=== PATIENT | female | born 1965 | race Asian ===

== ENCOUNTER 2020-07-04 14:39 | Emergency (ER) | payer MEDICARE, SELFPAY ==
[2020-07-04 14:41] VITALS: BP 131/71; PULSE 93; RESP 18; TEMP 36.3; O2SAT 99; BMI 29.2
--- NOTE | 2020-07-04 16:26 | CT_ITS ---
EXAMINATION: CT HEAD WITHOUT CONTRAST CLINICAL INFORMATION: Fall down backwards. History of MS. COMPARISON: None available. TECHNIQUE: Contiguous axial imaging was performed from the skull base to vertex without intravenous administration of contrast. This CT examination was performed using dose optimization techniques as appropriate, variously including the following: *Automated exposure control *Adjustment of mA and/or kV according to patient size (this includes techniques or standardized protocols for targeted exams where dose is matched to indication/reason for exam; i.e. extremities or head) *Use of iterative reconstruction technique FINDINGS: There is hypoattenuation concentrated within the periventricular white matter in keeping with the history of multiple sclerosis. There is no intracranial hemorrhage, hydrocephalus, extra-axial surface collection, midline shift, or other herniation pattern. [place] to white matter differentiation is diffusely maintained without evidence of an evolved acute territorial infarct. The basilar cisterns are preserved. No significant soft tissue abnormality. No acute osseous abnormality. The paranasal sinuses and the mastoid air cells are well aerated. CT/CT head/brain wo con IMPRESSION: No acute intracranial abnormality. There is hypoattenuation concentrated within the periventricular white matter in keeping with the history of multiple sclerosis.
--- NOTE | 2020-07-04 16:29 | ED_ITS ---
HPI - General Adult General Chief complaint: Fall Stated complaint: FELL,HIT HEAD Time Seen by Provider: 07/04/20 16:20 Source: patient Mode of arrival: ambulatory Limitations: no limitations History of Present Illness HPI narrative: patient comes to The emergency room complaining of a laceration to her forehead and a fall. Patient states she was walking up the stairs, her legs gave out and she fell backwards and rolled down 10 stairs. Patient states she did not lose consciousness, denies pain anywhere else except her forehead. Patient denies being on blood thinners. Patient has chronic right- sided hip pain, states it got worse with the fall MD complaint: laceration, fall Related Data Allergies Allergy/AdvReac Type Severity Reaction Status Date / Time No Known Allergies Allergy Verified 07/04/20 14:45 Review of Systems Review of Systems: Constitutional : No Weight loss, No Fever, No Chills, No Night Sweats, No Fatigue, No Malaise ENT/Mouth : No Hearing loss, No Ear Pain, No Nasal Congestion, No Sinus Pain, No Hoarseness, No sore throat, No Rhinorrhea, No Swallowing Difficulty Eyes: No Eye Pain, No Swelling, No Redness, No Foreign Body, No Discharge, No Vision Changes Cardiovascular : No Chest Pain, No SOB, No Dyspnea on Exertion, No Orthopnea, No Edema, No Palpitations Respiratory : No Cough, No Sputum, No Wheezing, No Smoke Exposure, No Dyspnea Gastrointestinal : No Nausea, No Vomiting, No Diarrhea, No Constipation, No abdominal Pain, No Hematochezia, No Melena Genitourinary : no irregular bleeding, No Dysuria, No Urinary Frequency, No Hematuria, No Urinary Incontinence, No Urgency, No Flank Pain, No Urinary Flow Changes, No Hesitancy Musculoskeletal : complaining of right-sided hip pain, acute on chronic Skin : laceration to left side of forehead Neuro : No Weakness, No Numbness, No Paresthesias, No Loss of Consciousness, No Dizziness, No Headache Psych : No Anxiety/Panic, No Depression, No SI/HI/AH/VH, No Social Issues, Heme/Lymph: No Bruising, No Bleeding,No Lymphadenopathy Endocrine : No Polyuria, No Polydipsia, No Temperature Intolerance PMF Past Medical History Medical History (Updated 07/04/20 @ 17:47 by Madison Meadows MD) Multiple sclerosis Social History Social History Advance Directives: No Advance Directives Information Provided: Yes Physical Exam Vital Signs: Vital Signs: Last Vital Signs Temp 97.4 F 07/04/20 14:41 Pulse 93 07/04/20 14:41 Resp 18 07/04/20 14:41 BP 131/71 07/04/20 14:41 Pulse Ox 99 07/04/20 14:41 Body Mass Index 29.2 Appearance: Alert. Oriented X3. No acute distress. Eyes: Pupils equal, round and reactive to light. ENT: Pharynx normal. Neck: Normal inspection. Neck supple. No lymph nodes noted. No crepitus CVS: Normal heart rate and rhythm. Pulses normal. Normal S1 and S2 Respiratory: No respiratory distress. Breath sounds normal. No Wheezing. No rales Abdomen: Soft and nontender. No rigidity. No distention. good BS x4 Skin: Skin warm and dry. 4 cm laceration to the left side of the forehead crossing the hairline, bleeding controlled Extremities: No lower extremity edema. No lower extremity edema. No Lacerations. No Rash Neuro: Oriented X 3. No motor deficit. No sensory deficit. Moving all extermities. No slurred speech. Course Course Course Narrative: patient's laceration was repaired with 9 delfino over the scalp, and 3 sutures over the skin on the forehead Discussed with the patient her CT scan is normal, no new findings in the hip x- ray either. Patient is ambulatory With help of her cane at baseline Procedures Laceration Laceration 1: Site: scalp Size (cm): 5 Description: linear and irregular Depth: simple, single layer Local Anesthetic: lidocaine 2% Amount of anesthesia used (mL): 5 Pre-repair: wound explored Size (cm): 4-0 Number of sutures: 9 Medical Decision Making Imaging Data head CT: Radiologist's impression: There is hypoattenuation concentrated within the periventricular white matter in keeping with the history of multiple sclerosis. There is no intracranial hemorrhage, hydrocephalus, extra-axial surface collection, midline shift, or other herniation pattern. [place] to white matter differentiation is diffusely maintained without evidence of an evolved acute territorial infarct. The basilar cisterns are preserved. No significant soft tissue abnormality. No acute osseous abnormality. The paranasal sinuses and the mastoid air cells are well aerated. CT/CT head/brain wo con IMPRESSION: No acute intracranial abnormality. There is hypoattenuation concentrated within the periventricular white matter in keeping with the history of multiple sclerosis. hip x-ray: Radiologist's impression: There is hypoattenuation concentrated within the periventricular white matter in keeping with the history of multiple sclerosis. There is no intracranial hemorrhage, hydrocephalus, extra-axial surface collection, midline shift, or other herniation pattern. [place] to white matter differentiation is diffusely maintained without evidence of an evolved acute territorial infarct. The basilar cisterns are preserved. No significant soft tissue abnormality. No acute osseous abnormality. The paranasal sinuses and the mastoid air cells are well aerated. CT/CT head/brain wo con IMPRESSION: No acute intracranial abnormality. There is hypoattenuation concentrated within the periventricular white matter in keeping with the history of multiple sclerosis. Discharge Plan Discharge Clinical Impression: Laceration Patient Disposition: Home, Self-Care Instructions: Staple Care (ED), Head Laceration (ED) Additional Instructions: your delfino and stitches need to come out and 7-10 days. If you see any signs of infection such as redness, pus drainage, fever, or if you see anything abnormal please return to the emergency room
--- NOTE | 2020-07-04 16:46 | XR_ITS ---
EXAMINATION: XR HIP, RIGHT CLINICAL INFORMATION: Acute on chronic right hip pain COMPARISON: Radiographs right hip 01/12/2018 TECHNIQUE: AP view pelvis is performed along with AP and frog-lateral projections right hip for a total of 3 views. FINDINGS: The right hip shows no fracture or dislocation. No joint narrowing or erosive change or visible chondrocalcinosis. Soft tissue planes around the hips appear bilaterally symmetric. The SI joints and pubis are unremarkable. Bowel gas is normal. There is dextrocurvature thoracic spine with multilevel degenerative changes and rotatory component. XR/XR hip RT w PEL1V IMPRESSION: 1. Unremarkable right hip. 2. Multilevel degenerative changes lumbar spine with rotatory dextrocurvature.
[2020-07-04] MEDS: Lidocaine HCl 2 % MPF 5 ML VIAL INFILTRATI (17:56)
--- NOTE | 2020-07-04 17:56 | PC.NURSE ---
lidocaine given to MD Meadows
== END 2020-07-04 18:38 | disposition home or self-care (01) ==
PROVIDERS: Emergency Provider Emergency Medicine; PCP Internal Medicine
DX: S01.01XA Laceration without foreign body of scalp, initial encounter (principal); M25.552 Pain in left hip; M25.551 Pain in right hip; R10.2 Pelvic and perineal pain; W10.9XXA Fall (on) (from) unspecified stairs and steps, initial encounter; Y93.01 Activity, walking, marching and hiking; Y92.9 Unspecified place or not applicable; Y99.9 Unspecified external cause status
CPT/HCPCS: 12002; 70450; 73502; 99282; 99284

== ENCOUNTER 2020-08-22 09:27 | Outpatient (REF) | payer MEDICARE, SELFPAY ==
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
== END 2020-08-22 09:28 | disposition home or self-care (01) ==
LOC: HO.HMGCX 09:27
PROVIDERS: PCP Internal Medicine; Visit Provider Physician Assistant
DX: M25.551 Pain in right hip (principal)
CPT/HCPCS: 73502

== ENCOUNTER 2022-02-24 09:19 | Outpatient (REF) | payer OTHER, SELFPAY ==
--- NOTE | ~2022-02-24 | MM_ITS ---
EXAMINATION: MM SCREENING DIGITAL BREAST TOMOSYNTHESIS, BILATERAL CLINICAL INFORMATION: Screening. Asymptomatic. The lifetime risk of breast cancer based on the Tyrer-Cuzick Model is 8%. COMPARISON: Mammography: 12/21/2017, 06/18/2016 TECHNIQUE: Digital breast tomosynthesis is performed in both the craniocaudal and mediolateral oblique views along with computer-aided detection (CAD). Synthesized 2D images are generated from the tomosynthesis. FINDINGS: There are scattered areas of fibroglandular density (ACR BI-RADS breast composition Category b). There are no significant masses, abnormal calcifications, or other abnormalities. Parenchymal pattern is similar to prior studies. There is no developing density or architectural abnormality. The axilla and skin contours are unremarkable. No significant changes. MM/MM tomosynthesis screening BI IMPRESSION: No mammographic evidence of malignancy. ASSESSMENT: BI-RADS 1: Negative RECOMMENDATION: Routine annual mammography screening. This patient's information was entered into a reminder system with a target due date for their next mammogram.
== END 2022-02-24 09:20 | disposition home or self-care (01) ==
LOC: HO.MAMMO 09:19
PROVIDERS: PCP Internal Medicine; Visit Provider Internal Medicine
DX: Z12.31 Encounter for screening mammogram for malignant neoplasm of breast (principal)
CPT/HCPCS: 77063; 77067

== ENCOUNTER 2022-06-29 10:34 | Day surgery (SDC) | payer MEDICARE, SELFPAY ==
--- NOTE | 2022-06-28 10:18 | HO.ANESPROP2 ---
Documented by User: Anaya Hernandez NP 06/28/22 10:18 HPI - Anesthesia Eval Consult details Narrative: 57yo F for Colonoscopy PMFSH Active Problems Active Problems: All Active Problems (Updated 06/28/22 @ 09:13 by Ernestine Feng RN) Visit for suture removal (Acute) Encounter for staple removal (Acute) Concussion (Acute) Cat bite of right foot with infection (Acute) Past Medical History Medical History (Updated 06/28/22 @ 09:13 by Ernestine Feng RN) Depression Gregor-Danlos syndrome type III Multiple sclerosis Neuropathy Seizure disorder Family History Family History Father Medical history unknown Mother Colon cancer Surgical History Surgical History History of Social History Social History (Updated 08/06/20 @ 10:42 by LAILA Burrell) Alcohol intake: current Alcohol intake frequency: does not drink Patient Tobacco Use Status: Never used Tobacco Use of substances other than those prescribed or required for medical reasons: No Are you DNR?: No Advance Directives: No Advance Directives Information Provided: Yes Meds Allergies Allergy/AdvReac Type Severity Reaction Status Date / Time No Known Allergies Allergy Verified 06/29/22 11:42 Home Medications Medication Instructions Recorded Confirmed Last Taken Type baclofen 20 mg tablet 20 mg PO DAILY 08/06/20 06/29/22 Unknown History duloxetine 30 mg capsule,delayed 30 mg PO DAILY 08/06/20 06/29/22 Unknown History release gabapentin 600 mg tablet 600 mg PO DAILY 08/06/20 06/29/22 06/29/22 08:30 History levetiracetam 250 mg tablet 250 mg PO DAILY 08/06/20 06/29/22 06/29/22 08:30 History ocrelizumab 30 mg/mL intravenous 600 mg IV [id number] 08/06/20 06/29/22 Unknown History solution (Ocrevus) Exam Exam Date and Time: June 28, 2022 1018 Assessment and Plan Assessment Anesthesia Assessment: Chart Reviewed Documented by User: Cedrick Walker MD 06/29/22 17:20 HPI - Anesthesia Eval Consult details Narrative: 57yo F for Colonoscopy leftt sided weakness more than right specially in the upper body , b/l LE weakness , attributed to MS . PMFSH Past Medical History Medical History (Updated 06/28/22 @ 09:13 by Ernestine Feng RN) Depression Gregor-Danlos syndrome type III Multiple sclerosis Neuropathy Seizure disorder Functional capacity: uses cane/walker Family History Family History Father Medical history unknown Mother Colon cancer Family history of problems with anesthesia: Yes (Delayed emergence ) Surgical History Surgical History History of History of Problems with Anesthesia: No Social History Social History (Updated 08/06/20 @ 10:42 by LAILA Burrell) Alcohol intake: current Alcohol intake frequency: does not drink Patient Tobacco Use Status: Never used Tobacco Use of substances other than those prescribed or required for medical reasons: No Are you DNR?: No Advance Directives: No Advance Directives Information Provided: Yes Meds Allergies Allergy/AdvReac Type Severity Reaction Status Date / Time No Known Allergies Allergy Verified 06/29/22 11:42 Home Medications Medication Instructions Recorded Confirmed Last Taken Type baclofen 20 mg tablet 20 mg PO DAILY 08/06/20 06/29/22 Unknown History duloxetine 30 mg capsule,delayed 30 mg PO DAILY 08/06/20 06/29/22 Unknown History release gabapentin 600 mg tablet 600 mg PO DAILY 08/06/20 06/29/22 06/29/22 08:30 History levetiracetam 250 mg tablet 250 mg PO DAILY 08/06/20 06/29/22 06/29/22 08:30 History ocrelizumab 30 mg/mL intravenous 600 mg IV [id number] 08/06/20 06/29/22 Unknown History solution (Ocrevus) Exam Airway Mallampati Class: III TM Dist: >3cm Neck ROM: Full Loose/Missing/Broken Teeth: Yes (Chipped teeth , poor dentition overall ) Heart: S1,S2 Lungs: b/l breath sounds Assessment and Plan Assessment Anesthesia Assessment: Anesthesia Plan Discussed Final Anesthetic Review Family History of Problems with Anesthesia: Yes (Delayed emergence ) History of Problems with Anesthesia: No NPO: Yes ASA Class: III Final Preanesthetic Review: Meds/Allgs Chart Reviewed, Consent Obtained/Reviewed and Anes Risks/Benef Reviewed Patient Risk: Intermediate Procedure Risk: Intermediate Anesthetic Plan Anesthetic Plan: MAC: Disposition: Standard PACU
[2022-06-29 12:15] VITALS: BP 152/82; PULSE 98; RESP 16; TEMP 36.3; O2SAT 97; BMI 27.1
[2022-06-29] MEDS: Lactated Ringers 1,000 ML 100 ML IVCONT (12:35)
--- NOTE | 2022-06-29 12:54 | MHC.SHP ---
Pre-Procedural Eval Section A Date of Service: 06/29/22 The patient is an INPATIENT: No Changes since office visit: No Cold of Flu in the past 2 weeks, No New Medical Problems, No Changes in Medication and No Patient answered all questions The History & Physical has been completed within 30 days and I have reviewed it.: Yes Section B Chief Complaint: screening Allergies: Allergies Allergy/AdvReac Type Severity Reaction Status Date / Time No Known Allergies Allergy Verified 06/29/22 11:42 Plan I have reviewed the history and physical and performed a pertinent physical examination on my patient. No changes have occurred unless specified.
--- NOTE | 2022-06-29 13:22 | PM.OP ---
Brief Operative Note Date of Service: 06/29/22 Pre-op diagnosis: screening change in bowels Post-op diagnosis: same Procedure: colo Surgeon: Daniel Sandhu Anesthesia: MAC Was an Executive [employer] used for this Procedure?: No Estimated blood loss (mL): 2 Pathology: other Condition: stable Disposition: PACU
[2022-06-29 13:24] VITALS: BP 100/50; PULSE 88; RESP 16; TEMP 36.7; O2SAT 97
[2022-06-29 13:39] VITALS: BP 120/73; PULSE 79; RESP 16; O2SAT 99
[2022-06-29 13:54] VITALS: BP 146/84; PULSE 78; RESP 16; TEMP 36.8; O2SAT 99
[2022-06-29 14:10] VITALS: BP 152/81; PULSE 77; RESP 16; TEMP 36.8; O2SAT 98
--- NOTE | 2022-06-30 03:30 | OP_ITS ---
SURGEON: Daniel Sandhu MD INDICATIONS: Colon cancer screening and change in bowel habits. PREOPERATIVE DIAGNOSIS: POSTOPERATIVE DIAGNOSIS: PROCEDURE PERFORMED: Colonoscopy to the terminal ileum with biopsy. ESTIMATED BLOOD LOSS: COMPLICATIONS: ANESTHESIA: Monitored anesthesia care. ASSISTANTS: SPECIMENS: DESCRIPTION OF PROCEDURE: The procedure was performed on 06/29/2022. History and physical performed. The risks and benefits of the procedure were explained to the patient. Informed consent was obtained. The patient was placed in the left lateral decubitus position. A digital rectal exam was performed and was found to be normal. An Olympus pediatric video colonoscope was introduced into the rectum and advanced to the cecum without difficulty. The cecum was identified by transillumination, palpation, and identification of the ileocecal valve. Examination was performed. The scope was removed. She tolerated the procedure well and was transferred to recovery area in stable condition. FINDINGS: The terminal ileum was examined and appeared normal. This was biopsied. The visualized colonic mucosa was normal. The quality of the prep was good. No colitis was identified. Random sigmoid biopsies were obtained to evaluate for microscopic colitis. Retroflexed examination showed moderate-sized internal hemorrhoids. IMPRESSION: Normal colonoscopy. RECOMMENDATIONS: 1. Follow up the biopsy results. 2. Repeat colonoscopy is recommended in 10 years for average risk individuals. MD TIERRA Dowell/MOON / [phone]
== END 2022-06-29 14:55 | disposition home or self-care (01) ==
PROVIDERS: PCP Internal Medicine; Visit Provider Internal Medicine Gastroenterology
PROC: 0DJD8ZZ Inspection of Lower Intestinal Tract, Via Natural or Artificial Opening Endoscopic (ICD-10-PCS; CPT 45378; principal; 2022-06-29 11:40)
DX: Z12.11 Encounter for screening for malignant neoplasm of colon (principal); R19.8 Other specified symptoms and signs involving the digestive system and abdomen; K64.8 Other hemorrhoids; G35 Multiple sclerosis; G40.909 Epilepsy, unspecified, not intractable, without status epilepticus; Z79.899 Other long term (current) drug therapy; Z80.0 Family history of malignant neoplasm of digestive organs
CPT/HCPCS: G0105; 88305

== ENCOUNTER 2023-04-01 10:22 | Outpatient (AMB) | payer MEDICARE, SELFPAY ==
--- NOTE | 2023-04-01 10:24 | A.OFFPC_ITS ---
Vital Signs 04/01/23 10:25 Height 5 ft 1 in Weight 134 lb 8 oz BMI 25.4 BP 128/100 H Blood Pressure Location Lt brachial Position Sitting Pulse 107 H Pulse Source Pulse Oximeter Pulse Oximetry (%) 96 Oxygen Delivery Method Room Air Intake Visit Reasons: Gum Infection Allergies No Known Allergies Allergy (Verified 04/01/23 10:25) Medication List - Last Reconciled 04/01/23 by Ozzy Saenz MD baclofen 20 mg PO DAILY duloxetine 30 mg PO DAILY gabapentin 600 mg PO DAILY levetiracetam 250 mg PO DAILY ocrelizumab (Ocrevus) 600 mg IV [id number] Tobacco use date assessed: 04/01/23 Dental Screening Dental Screen Date: 04/01/23 Did you have a dental visit in the last 12 months?: No Did you have a dental problem in the last 6 months where you did not have access to dental care?: No Was dental information given to patient?: No HPI Gum Infection HPI Details painful right lower gum for a week PFSH Medical History Depression Gregor-Danlos syndrome type III Multiple sclerosis Neuropathy Seizure disorder Surgical History History of Family History Father Medical history unknown Mother Colon cancer Social History Housing: Condominium Alcohol intake: current Alcohol intake frequency: does not drink Patient Tobacco Use Status: Never used Tobacco e-Cigarette/Vaping Use: Never Used service: No Current occupational status: unemployed Cognitive needs: No Hearing needs: No Vision needs: No Questionnaire PHQ-9 Over the last 2 weeks, how often have you been bothered by any of the following problems? 1. Little interest or pleasure in doing things: several days 2. Feeling down, depressed, or hopeless: several days 3. Trouble falling or staying asleep, or sleeping too much: not at all 4. Feeling tired or having little energy: not at all 5. Poor appetite or overeating: not at all 6. Feeling bad about yourself - or that you are a failure or have let yourself or your family down: not at all 7. Trouble concentrating on things, such as reading the newspaper or watching television: not at all 8. Moving or speaking so slowly that other people could have noticed. Or the opposite - being so fidgety or restless that you have been moving around a lot more than usual: not at all 9. Thoughts that you would be better off or of hurting yourself in some way: not at all Total score: 2 Source: Developed by Drs. Charles Pittman, Edel Roldan, Humphrey Cruz and colleagues, with an educational rachel from [employer]. Thrive Questionnaire Date Thrive assessed: 04/01/23 I am a: Patient What is your living situation today?: I have a steady place to live Within the past 12 months, did the food you bought not last and you didn't have the money to get more?: Never true Within the past 12 months, did you worry whether your food would run out before you got money to buy more?: Never true Do you have trouble paying for medicines?: No Do you have trouble getting transportation to medical appointments?: No Do you have trouble paying your heating and electricity bill?: No Do you have trouble taking care of your child, family member or friend?: No Do you have trouble with day-to-day activities such as bathing, preparing meals, shopping, managing finances, etc.?: No Are you currently unemployed and looking for a job?: No Are you interested in more education?: No Please select the resources that you would like help with: None DIANELYS-7 AMB Questionnaire DIANELYS-7 Date DIANELYS - 7 assessed: 04/01/23 Feeling nervous, anxious, or on edge: 0 = Not at all Not being able to stop or control worryin = Not at all Worrying too much about different things: 0 = Not at all Trouble relaxin = Not at all Being so restless that it is hard to sit still: 0 = Not at all Becoming easily annoyed or irritable: 0 = Not at all Feeling afraid as if something awful might happen: 0 = Not at all Total DIANELYS-7 score (0-4 normal; 5-9 mild; 10-14 moderate; 15-21 severe): 0 Source: Developed by Drs. Charles Pittman, Edel Roldan, Humphrey Cruz and colleagues, with an educational rachel from [employer]. Review of Systems Const Denies chills, Denies headache(s) and Denies weight loss ENT Denies headache(s) Card Denies chest pain, Denies syncope, Denies irregular heart rhythm and Denies dyspnea Resp Denies chest congestion, Denies cough and Denies dyspnea GI Denies abdominal pain, Denies change in stool character, Denies nausea and Denies vomiting Musc Denies deformity and Denies joint swelling Neuro Denies syncope and Denies headache(s) Physical exam (Primary Care) Vital Signs: Last Vital Signs Pulse 107 H 04/01/23 10:25 BP 128/100 H 04/01/23 10:25 Pulse Ox 96 04/01/23 10:25 Oxygen Delivery Method Room Air 04/01/23 10:25 BMI result Body Mass Index 25.4 Tobacco/Smoking Status: Tobacco use Status Tobacco use date assessed 04/01/23 04/01/23 10:33 Patient Tobacco Use Status Never used Tobacco 04/01/23 10:33 e-Cigarette/Vaping Use Never Used 04/01/23 10:33 PHQ-9: PHQ-9 Score PHQ-9: Total score 2 04/01/23 10:33 Thrive Assessment: Date of Thrive Assessment Date Thrive assessed 04/01/23 04/01/23 10:33 Const General: cooperative, comfortable and no acute distress HENMT Other: right lowere gum red with shallow ulcer Eyes General: appearance normal, both eyes and all related structures Neck Neck: Yes normal visual inspection Assessment and Plan Assessment & Plan (1) Gingivitis: Code(s): K05.10 - Chronic gingivitis, plaque induced Plan: rx; see dentist Medications: New amoxicillin 250 mg PO Q8H 30 caps 0RF Coding Level of Care Code Est Pt Level 3 (68111) Diagnoses Gingivitis K05.10
[2023-04-01 10:25] VITALS: BP 128/100; PULSE 107; O2SAT 96; BMI 25.4
== END 2023-04-01 10:49 | disposition home or self-care (01) ==
PROVIDERS: PCP Internal Medicine; Visit Provider Internal Medicine
DX: K05.10 Chronic gingivitis, plaque induced (principal)
CPT/HCPCS: 99213

== ENCOUNTER 2023-07-27 08:56 | Outpatient (AMB) | payer MEDICARE, SELFPAY ==
[2023-07-27 09:33] VITALS: BP 122/80; PULSE 132; TEMP 37.1; O2SAT 98
--- NOTE | 2023-07-27 09:33 | MHC.OFFWIV ---
Intake Vital Signs 07/27/23 09:33 07/27/23 10:55 Height 5 ft 1 in BP 122/80 Blood Pressure Location Rt brachial Position Sitting Pulse 132 H 82 Pulse Source Pulse Oximeter Monitor Temp 98.7 F Temp Source Oral Pulse Oximetry (%) 98 Intake Visit Reasons: EP Cough, Congestion (masked) Intake Note: pt is here for c.o cough, congestion Patient Tobacco Use Status: Never used Tobacco Allergies No Known Allergies Allergy (Verified 07/27/23 10:14) Medication List - Last Reconciled 07/27/23 by Richelle Pierre, HEAD OF SALES [employer]- baclofen 20 mg PO TID duloxetine 30 mg PO DAILY gabapentin 600 mg PO DAILY levetiracetam 250 mg PO DAILY modafinil 200 mg PO DAILY ocrelizumab (Ocrevus) 600 mg IV [id number] Do you need a note to return to daycare/school/sports/work: Yes HPI HPI Comments History of Present Illness Details here today w c/o cough that started 1 week ago worse in the AM thinks she hears crackling when lying flat has a runny nose otherwise denies fever, chills, ear pain, sore throat, chest pain taking otc dayquil w/o relief when asked about tachycardia noted on exam, she thinks her HR is always a little elevated but cannot give me any more info had an echo done d/t her EDS but does not 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 generally deconditioned and HR elevates w/ exertion PFSH Medical History Depression Gregor-Danlos syndrome type III Multiple sclerosis Neuropathy Seizure disorder Surgical History History of Family History Father Medical history unknown Mother Colon cancer Social History Housing: Condominium Alcohol intake: current Alcohol intake frequency: does not drink Patient Tobacco Use Status: Never used Tobacco e-Cigarette/Vaping Use: Never Used service: No Current occupational status: unemployed Cognitive needs: No Hearing needs: No Vision needs: No Review of Systems Const All systems reviewed & are unremarkable except as noted in HPI and below Physical Exam Vital Signs: Last Vital Signs Temp 98.7 F 07/27/23 09:33 Pulse 132 H 07/27/23 09:33 BP 122/80 07/27/23 09:33 Pulse Ox 98 07/27/23 09:33 Const Other: awake, alert, chronically ill appearing Uses a cane and furniture to move about, slow and cautiously TM intact, clear bilat nares with clear drainage, turbinates WNL Pharynx clear Tachycardic, Regular LS CTAB Assessment & Plan Assessment & Plan (1) Tachycardia with heart rate 121-140 beats per minute: Code(s): R00.0 - Tachycardia, unspecified (2) Cough: Code(s): R05.9 - Cough, unspecified Qualifiers: Cough type: acute Qualified Code(s): R05.1 - Acute cough Plan: . Plan . Orders: Orders AMB EKG-In Office Today R00.0 - Tachycardia, unspecified, Z13.6 - Encounter for screening for cardiovascular disorders Patient Instructions: EKG done in office today. NSR. Tachycardia improved w/rest offered and declined CXR for cough. declined viral swab and tessalon she is ok w supportive care edu on reasons to RTO or seek addl care. Coding Level of Care Code Est Pt Level 4 (69912) Diagnoses Tachycardia with heart rate 121-140 beats per minute R00.0 Acute cough R05.1 Cough type: acute
[2023-07-27 10:55] VITALS: PULSE 82
== END 2023-07-27 11:16 | disposition home or self-care (01) ==
PROVIDERS: PCP Internal Medicine; Visit Provider Nurse Practitioner Family
DX: R00.0 Tachycardia, unspecified (principal); R05.1 Acute cough
CPT/HCPCS: 99214

== ENCOUNTER 2023-11-04 08:38 | Outpatient (AMB) | payer MEDICARE, SELFPAY ==
[2023-11-04 08:38] VITALS: BP 110/76; PULSE 113; TEMP 36.3; O2SAT 97; BMI 29.1
--- NOTE | 2023-11-04 08:38 | MHC.OFFWIV ---
Intake Vital Signs 11/04/23 08:38 Height 5 ft 1 in Weight 154 lb BMI 29.1 BP 110/76 Blood Pressure Location Lt brachial Position Sitting Pulse 113 H Pulse Source Pulse Oximeter Temp 97.4 F Temp Source Temporal Artery Scan Pulse Oximetry (%) 97 Oxygen Delivery Method Room Air Intake Visit Reasons: EP LT arm injury/chest due to fall Intake Note: pt is here today for lft arm injury and chest due to fall started 2b weeks ago Patient Tobacco Use Status: Never used Tobacco Allergies No Known Allergies Allergy (Verified 11/04/23 08:43) Do you need a note to return to daycare/school/sports/work: No HPI HPI Comments History of Present Illness Details This is a 58-year-old female who presents to the walk-in clinic today complaining of left arm pain and left-sided chest pain status post mechanical fall that occurred 2 weeks ago. Patient reports a history of multiple sclerosis and has chronic weakness at baseline. She states that her legs started feeling weak and gave out while walking down a set of stairs and she fell down approximately 8 stairs. Patient denies any significant head trauma or loss of consciousness. She denies any lightheadedness or dizziness prior to the fall. She denies any chest pain or shortness of breath prior to fall. She states she was able to get up on her own after the fall a continue with her activities of daily living. She states that she had some soreness of her left arm and some soreness of her left chest wall. Patient states that the soreness has persisted over the past 2 weeks so she decided to come to the walk-in clinic for further evaluation. Patient states that the pain of her left arm is quite diffuse but located mostly in the upper arm. She states is worsened with any weight-bearing on left arm in certain movements of the left arm. The patient denies any shortness of breath. She denies any ecchymosis or swelling. She is otherwise feeling well. [facility] Medical History Depression Gregor-Danlos syndrome type III Multiple sclerosis Neuropathy Seizure disorder Surgical History History of Family History Father Medical history unknown Mother Colon cancer Social History Housing: Condominium Alcohol intake: current Alcohol intake frequency: does not drink Patient Tobacco Use Status: Never used Tobacco e-Cigarette/Vaping Use: Never Used service: No Current occupational status: unemployed Cognitive needs: No Hearing needs: No Vision needs: No Review of Systems Const All systems reviewed & are unremarkable except as noted in HPI and below Reports no additional complaints Eyes Reports no additional complaints ENT Reports no additional complaints Card Reports no additional complaints Resp Reports no additional complaints GI Reports no additional complaints Reports no additional complaints Musc Reports no additional complaints Skin/Breast Reports system reviewed and no additional complaints, except as documented Neuro Reports no additional complaints Psych Reports no additional complaints Endo Reports no additional complaints Sam/Lymph Reports no additional complaints Aller/Immun Reports no additional complaints Physical Exam Vital Signs: Last Vital Signs Temp 97.4 F 11/04/23 08:38 Pulse 113 H 11/04/23 08:38 BP 110/76 11/04/23 08:38 Pulse Ox 97 11/04/23 08:38 Oxygen Delivery Method Room Air 11/04/23 08:38 BMI result Body Mass Index 29.1 Const Other: Vital signs reviewed. Constitutional: Non-toxic appearing. No acute distress. Well-developed and well-nourished. HEENT: Normocephalic and atraumatic. PERRL/EOMI. Skin: Warm and dry. No rashes or lesions noted. No ecchymosis throughout the body. Neck: Full and painless range of motion. No cervical spinous process tenderness to palpation. No cervical lymphadenopathy. Cardio: Tachycardic but regular rhythm. No murmurs, gallops, or rubs. No lower extremity edema. She has reproducible tenderness to palpation of the mid to left chest wall without significant tenderness to palpation of the left ribs. Pulmonary: No respiratory distress. No accessory muscle usage. Clear to auscultation bilaterally without wheezing, crackles, or rhonchi. Gastrointestinal: Soft, non-tender, and non-distended in all 4 quadrants. Normoactive bowel sounds in all 4 quadrants. Musculoskeletal: Patient has diffuse muscular tenderness to palpation of the left upper arm and left upper back. She has mild pain of her left posterior upper arm with forward flexion of the left shoulder as well as internal/external rotation of the left shoulder; however, she has no pain with abduction of the left shoulder. She has no focal bony tenderness to palpation of the hand, wrist, forearm, upper arm, or shoulder. Neuro: Alert and oriented x4. Cranial nerves 2-12 grossly intact. No focal deficits appreciated. Psych: Normal mood and affect. Assessment & Plan Assessment & Plan (1) Left upper arm pain: Code(s): M79.622 - Pain in left upper arm (2) Left-sided chest wall pain: Code(s): R07.89 - Other chest pain Plan This is a 58-year-old female with past medical history significant for multiple sclerosis who presented to the walk-in clinic complaining of persistent left upper arm and left-sided chest wall pain x2 weeks following a mechanical fall. The patient states her pain is tolerable; however, it has persistent so she decided to come to the walk-in clinic for further evaluation. On physical examination, the patient has mild diffuse muscular tenderness to palpation of the left upper arm and left upper back as well as reproducible tenderness to palpation of the left chest wall. There is no focal bony tenderness to palpation no ecchymosis/swelling of her left arm. Patient very likely has diffuse muscular sprains/strains following her fall. I have recommended supportive management including rest/activity modification, heating pad to the areas, [id number] lidocaine patches to the areas, continue icy hot to the areas, and continue with acetaminophen/naproxen for pain management. Patient was reassured that she does not appear to have any acute fractures or traumatic injuries based on physical exam alone. I explained to the patient that we do not have x-rays/radiology here today so she could proceed to the emergency room if she would like to rule out fracture so however, patient declined at this time as her pain is tolerable. Patient was advised to follow-up here or proceed to the emergency room if she were to develop persistent or worsening symptoms. Coding Level of Care Code Est Pt Level 3 (60422) Diagnoses Left upper arm pain M79.622 Left-sided chest wall pain R07.89
== END 2023-11-04 09:14 | disposition home or self-care (01) ==
PROVIDERS: PCP Internal Medicine; Visit Provider Physician Assistant Medical
DX: M79.622 Pain in left upper arm (principal); R07.89 Other chest pain
CPT/HCPCS: 99213

== ENCOUNTER 2024-05-09 13:37 | Outpatient (AMB) | payer MEDICARE, SELFPAY ==
--- NOTE | 2024-05-09 13:37 | MHC.PC.OV ---
Vital Signs 05/09/24 13:38 Height 5 ft 1 in Weight 131 lb BMI 24.7 BP 136/76 Blood Pressure Location Lt brachial Position Sitting Pulse 98 Pulse Source Pulse Oximeter Pulse Oximetry (%) 97 Oxygen Delivery Method Room Air Intake Visit Reasons: Annual Exam Mill Order Scheduler Required: No Accompanied by: Self / Same As Patient Allergies No Known Allergies Allergy (Verified 05/09/24 13:40) Medication List - Last Reconciled 05/09/24 by Ozzy Saenz MD baclofen 20 mg PO TID duloxetine 30 mg PO DAILY gabapentin 600 mg PO DAILY levetiracetam 250 mg PO DAILY modafinil 200 mg PO DAILY ocrelizumab (Ocrevus) 600 mg IV [id number] sulfamethoxazole-trimethoprim 800-160 mg (Bactrim DS) 1 tab PO BID Tobacco use date assessed: 05/09/24 Dental Screening Dental Screen Date: 05/09/24 Did you have a dental visit in the last 12 months?: No Did you have a dental problem in the last 6 months where you did not have access to dental care?: No Was dental information given to patient?: Patient declined HPI Annual Exam HPI Details MS and sees neurologist in [facility]; uses a walker but independent [facility] Medical History (Updated 05/09/24 @ 14:06 by Ozzy Saenz MD) Gregor-Danlos syndrome type III Depression Neuropathy Seizure disorder Multiple sclerosis Surgical History History of Family History Father Medical history unknown Mother Colon cancer Social History Housing: Condominium Alcohol intake: current Alcohol intake frequency: does not drink Patient Tobacco Use Status: Never used Tobacco Tobacco use type: Cigarette e-Cigarette/Vaping Use: Never Used Second Hand Smoke Exposure: No service: No Current occupational status: unemployed Cognitive needs: No Hearing needs: No Vision needs: No Questionnaire PHQ-9 Over the last 2 weeks, how often have you been bothered by any of the following problems? 1. Little interest or pleasure in doing things: several days 2. Feeling down, depressed, or hopeless: several days 3. Trouble falling or staying asleep, or sleeping too much: not at all 4. Feeling tired or having little energy: not at all 5. Poor appetite or overeating: not at all 6. Feeling bad about yourself - or that you are a failure or have let yourself or your family down: not at all 7. Trouble concentrating on things, such as reading the newspaper or watching television: not at all 8. Moving or speaking so slowly that other people could have noticed. Or the opposite - being so fidgety or restless that you have been moving around a lot more than usual: not at all 9. Thoughts that you would be better off or of hurting yourself in some way: not at all Total score: 2 Depression Screening Interpretation: Positive Depression Screening Done: Yes Source: Developed by Drs. Charles Pittman, Edel Roldan, Humphrey Cruz and colleagues, with an educational rachel from [employer]. Thrive Questionnaire Date Thrive assessed: 05/07/24 I am a: Patient What is your living situation today?: I have a steady place to live Within the past 12 months, did the food you bought not last and you didn't have the money to get more?: Never true Within the past 12 months, did you worry whether your food would run out before you got money to buy more?: Never true Do you have trouble paying for medicines?: No Do you have trouble getting transportation to medical appointments?: No Do you have trouble paying your heating and electricity bill?: No Do you have trouble taking care of your child, family member or friend?: No Do you have trouble with day-to-day activities such as bathing, preparing meals, shopping, managing finances, etc.?: Yes Are you currently unemployed and looking for a job?: No Are you interested in more education?: No Please select the resources that you would like help with: None Currently or been in a relationship where the following occur: No concerns reported THRIVE Score: 0 AUDIT C Alcohol Use Questionnaire (AUDIT-C) 1. How often do you have a drink containing alcohol?: Never 3. How often do you have six or more drinks on one occasion?: Never Total Score: 0 DIANELYS-7 AMB Questionnaire DIANELYS-7 Date DIANELYS - 7 assessed: 05/09/24 Feeling nervous, anxious, or on edge: 1 = Several days Not being able to stop or control worryin = Several days Worrying too much about different things: 1 = Several days Trouble relaxin = Several days Being so restless that it is hard to sit still: 0 = Not at all Becoming easily annoyed or irritable: 0 = Not at all Feeling afraid as if something awful might happen: 0 = Not at all Total DIANELYS-7 score (0-4 normal; 5-9 mild; 10-14 moderate; 15-21 severe): 4 Source: Developed by Drs. Charles Pittman, Edel Roldan, Humphrey Cruz and colleagues, with an educational rachel from [employer]. DIANELYS-7 Assessment Billing DIANELYS-7 Assessment Tool: DIANELYS-7 Assessment 39712 Review of Systems Const Denies chills, Denies fatigue, Denies headache(s) and Denies weight loss Eyes Denies change in vision, Denies diplopia and Denies eye pain ENT Denies vertigo, Denies dizziness, Denies headache(s) and Denies nasal discharge Card Denies chest pain, Denies rapid heart rate and Denies dyspnea on exertion Resp Denies chest congestion, Denies cough, Denies pain with cough and Denies dyspnea on exertion GI Denies abdominal pain, Denies hematochezia and Denies change in bowel habits Musc Denies myalgias, Denies arthralgias and Denies joint swelling Skin/Breast Denies lesions and Denies unusual bruising Neuro Denies vertigo, Denies dizziness, Denies headache(s) and Denies focal weakness Endo Denies fatigue Physical exam (Primary Care) Vital Signs: Last Vital Signs Pulse 98 05/09/24 13:38 BP 136/76 05/09/24 13:38 Pulse Ox 97 05/09/24 13:38 Oxygen Delivery Method Room Air 05/09/24 13:38 BMI result Body Mass Index 24.7 Tobacco/Smoking Status: Tobacco use Status Tobacco use date assessed 05/09/24 05/09/24 13:43 Patient Tobacco Use Status Never used Tobacco 05/09/24 13:43 Tobacco use type Cigarette 05/09/24 13:43 e-Cigarette/Vaping Use Never Used 05/09/24 13:43 PHQ-9: PHQ-9 Score PHQ-9: Total score 2 05/09/24 13:43 Depression Screening Interpretation: Positive Thrive Assessment: Date of Thrive Assessment Date Thrive assessed 05/07/24 05/09/24 13:43 Currently or been in a relationship where the following occur: No concerns reported Const General: cooperative, healthy appearing and no acute distress Orientation/consciousness: oriented to person, oriented to place and oriented to time HENMT Head: Yes normal to inspection, Yes normocephalic and Yes atraumatic Mouth: Normal oral and palatal mucosa present and tongue normal Throat: Yes posterior oropharynx normal and Yes uvula midline Eyes General: appearance normal, both eyes and all related structures Neck Neck: Yes normal visual inspection, Yes full ROM and Yes no lymphadenopathy Thyroid: Thyroid normal Carotids: normal carotid upstroke Chest Chest palpation & inspection: normal inspection of the chest Resp Effort & Inspection: normal respiratory effort and able to speak in complete sentences Auscultation: clear to auscultation bilaterally Cardio Jugular venous distension: no JVD Palpation: normal PMI Rate: regular rate Rhythm: regular rhythm Heart sounds: S1 normal heart sound present and S2 normal heart sound present GI Inspection: Yes normal to inspection Palpation (GI): Soft to palpation and No hepatosplenomegaly present Auscultation: normal bowel sounds General: Yes no CVA tenderness Back/Spine/Pelvis Back: no CVA tenderness Skin General skin exam: no rashes or lesions noted Neuro General: oriented to person, oriented to place and oriented to time Extrem General: Yes normal to inspection and Yes full ROM Coding Level of Care Code Est Pt Prev Care 40-64y(55388) Diagnoses Physical exam Z00.00 Multiple sclerosis G35 Additional Codes DIANELYS-7 Assessment Billing - DIANELYS-7 Assessment Tool: DIANELYS-7 Assessment 04702 ([id number]) Assessment & Plan Assessment & Plan (1) Physical exam: Code(s): Z00.00 - Encounter for general adult medical examination without abnormal findings Category: Medical Plan: due for labs (2) Multiple sclerosis: Code(s): G35 - Multiple sclerosis Category: Medical Plan: per neuro Orders: Orders Complete Blood Count Auto Diff Today Z13.0 - Encounter for screening for diseases of the blood and blood-forming organs and certain disorders involving the immune mechanism Comprehensive [employer]. Panel Fast Today Z13.9 - Encounter for screening, unspecified Thyroid Stimulating Hormone Today Z13.29 - Encounter for screening for other suspected endocrine disorder Lipid Panel Today Z13.220 - Encounter for screening for lipoid disorders
[2024-05-09 13:38] VITALS: BP 136/76; PULSE 98; O2SAT 97; BMI 24.7
== END 2024-05-09 14:00 | disposition home or self-care (01) ==
PROVIDERS: PCP Internal Medicine; Visit Provider Internal Medicine
DX: Z00.00 Encounter for general adult medical examination without abnormal findings (principal); G35 Multiple sclerosis

== ENCOUNTER → 2024-05-09 13:37 | Outpatient (BNVA) | payer MEDICARE, SELFPAY | PROVIDERS: PCP Internal Medicine; Visit Provider Internal Medicine | DX: Z00.00 Encounter for general adult medical examination without abnormal findings (principal); G35 Multiple sclerosis | CPT/HCPCS: 96127; 99396 ==

== ENCOUNTER 2024-05-15 10:32 | Outpatient (REF) | payer MEDICARE, SELFPAY ==
[2024-05-15 13:25] LABS: MANUAL DIFF FLAG NO
[2024-05-15 13:38] LABS: Basophils Absolute Auto 0.1 X10*3/uL (0.0-0.2); Basophils Percent Auto 1.3 % (0-2); Eosinophils Percent Auto 0.6 % (0-4); Hematocrit 41.8 % (37.0-47.0); Hemoglobin 13.8 g/dl (12.0-16.0); Imm Gran Abs Auto 0.02 X10*3/uL (0.00-0.03); Imm Gran Pct Auto 0.4 % (0.0-0.4); Lymphocytes Absolute Auto 1.2 X10*3/uL (1.2-4.9); Lymphocytes Percent Auto 25.8 % (20-40); Mean Corpuscular Hemoglobin 30.3 pg (27.0-33.0); Mean Corpuscular Volume 91.7 fL (80.0-98.0); Mean Platelet Volume 10.3 fL (9.4-12.3); Monocytes Absolute Auto 0.5 X10*3/uL (0.1-1.2); Monocytes Percent Auto 9.7 % (2-11); Neutrophils Absolute Auto 2.9 x10*3/uL (2.0-8.3); Neutrophils Percent Auto 62.2 % (45-73); Platelet Count 362 X10*3/uL (160-400); Red Blood Count 4.56 X10*6/uL (4.20-5.50); Red Cell Distribution Width 12.4 % (11.0-16.0); White Blood Count 4.6 X10*3/uL (4.8-10.8)
[2024-05-15 14:26] LABS: Alanine Aminotransferase 16 U/L (0-31); Albumin Level 4.3 g/dL (3.5-5.0); Alkaline Phosphatase 83 U/L (39-117); Anion Gap 12 (12-20); Aspartate Amino Transferase 19 U/L (5-31); Bilirubin Total 0.3 mg/dL (0.0-1.0); Blood Urea Nitrogen 15 mg/dL (9-16); Calcium 9.6 mg/dL (8.4-10.2); Carbon Dioxide 28 mmol/L (22-29); Chloride 105 mmol/L (96-108); Cholesterol 293 mg/dL (<200); Estimated Glomerular Filt Rate > 60; Glucose Fasting 109 mg/dL (60-99); HDL Cholesterol 62 mg/dL (>40); LDL Cholesterol Calculated 208 mg/dL (<100); Potassium 4.4 mmol/L (3.3-5.1); Sodium 141 mmol/L (135-145); Thyroid Stimulating Hormone 1.06 uIU/mL (0.32-4.0); Total Protein 6.8 g/dL (6.5-8.0); Triglycerides 115 mg/dL (<150)
== END 2024-05-15 10:33 | disposition home or self-care (01) ==
LOC: HO.HMGCLDS 10:32
PROVIDERS: PCP Internal Medicine; Visit Provider Internal Medicine
DX: Z13.0 Encounter for screening for diseases of the blood and blood-forming organs and certain disorders involving the immune mechanism (principal); Z13.9 Encounter for screening, unspecified; Z13.29 Encounter for screening for other suspected endocrine disorder; Z13.220 Encounter for screening for lipoid disorders
CPT/HCPCS: 36415; 80053; 80061; 84443; 85025

== ENCOUNTER 2024-06-11 10:31 | Outpatient (REF) | payer MEDICARE, SELFPAY | END 2024-06-11 10:32 | disposition home or self-care (01) | LOC: HO.LNP 10:31 | PROVIDERS: PCP Internal Medicine; Visit Provider Surgery | DX: L72.11 Pilar cyst (principal) | CPT/HCPCS: 11422; 88304; 99202 ==

== ENCOUNTER 2024-06-11 10:31 | Outpatient (AMB) | payer MEDICARE, SELFPAY ==
--- NOTE | 2024-06-11 10:38 | A.OFFVIS_ITS ---
Vital Signs 06/11/24 10:45 Height 5 ft 1 in Weight 148 lb BMI 28.0 BP 149/77 H Blood Pressure Location Rt brachial Position Sitting Pulse 108 H Intake Visit Reasons: cyst scalp Intake Note: Patient referred by pcp Dr. Saenz for cyst on scalp. Present for 2-3 yrs. Patient c/o: enlarging. Denies pain, oozing. [employer] Operations Specialist Required: No Accompanied by: Self / Same As Patient Allergies No Known Allergies Allergy (Verified 06/11/24 10:44) Medication List - Last Reconciled 06/11/24 by Kristofer Martin MD baclofen 20 mg PO TID duloxetine 30 mg PO DAILY gabapentin 600 mg PO DAILY levetiracetam 250 mg PO DAILY modafinil 200 mg PO DAILY ocrelizumab (Ocrevus) 600 mg IV [id number] HPI Comments Details: Patient presents with at least 1-2 history of a frontal scalp cyst/pilar cyst. His increasing in size, become more symptomatic. She would like to have it removed. Chart was reviewed and patient evaluated. Patient was had several year history of multiple sclerosis and requires a walker [facility] Medical History Gregor-Danlos syndrome type III Depression Neuropathy Seizure disorder Multiple sclerosis Surgical History History of Family History Father Medical history unknown Mother Colon cancer Social History Housing: Condominium Alcohol intake: current Alcohol intake frequency: does not drink Patient Tobacco Use Status: Never used Tobacco Tobacco use type: Cigarette e-Cigarette/Vaping Use: Never Used Second Hand Smoke Exposure: No service: No Current occupational status: unemployed Cognitive needs: No Hearing needs: No Vision needs: No Physical Exam Vital Signs: Last Vital Signs Pulse 108 H 06/11/24 10:45 BP 149/77 H 06/11/24 10:45 BMI result Body Mass Index 28.0 HEENT Other: 3 x 2 cm frontal pilar cyst of scalp Office Procedures Excision Details: Risks, benefits, alternatives of excision of pilar cyst of scalp were reviewed with the patient included but not limited to bleeding, infection, recurrence, numbness, pain, scarring the patient wished to proceed. All questions answered. Consent site. After appropriate positioning, patient underwent 1% lidocaine and Betadine prep and longitudinal incision was made over the frontal scalp when which was uneventfully excised. Specimen sent to pathology. Wound was irrigated, secured hemostasis, and closed using interrupted 2-0 Prolene suture followed by bacitracin. Patient tolerated procedure well. [id number] scalp/neck/hands/feet/genitalia 2.1cm-3cm Procedure code (CPT) selection complete Office Meds lidocaine 1 %-epinephrine 1:100,000 injection solution Performing Provider: Kristofer Martin MD Performing Location: [facility] Administered by: Kristofer Martin MD on 06/11/24 11:17 Dose Route Admin Location Dispensed Lot Number Expiration Date [facility] Nurse Practitioner Home Assessments 8 mL Infiltration 8 mL Assessment & Plan Assessment & Plan (1) Pilar cyst of scalp: Code(s): L72.11 - Pilar cyst Category: Surgical Plan: Patient was been given local instructions including Tylenol or Motrin p.r.n. pain, ice to the wound periodically, bacitracin to the wound each day, may shower starting today and patient will see me as directed or p.r.n.. All questions answered. Orders: Orders AMB Excision Today L72.11 - Pilar cyst Medications: New lidocaine-epinephrine 1 %-1:100,000 8 mL Infiltration ONCE 30 mL 0RF L72.11 - Pilar cyst Coding Level of Care Code New Pt Level 5 (60907) Diagnoses Pilar cyst of scalp L72.11 CPT Codes Scalp/Neck/Hands/Feet/Genetalia - CPT: [id number]-[id number] scalp/neck/hands/feet/genitalia 2.1cm-3cm ([id number])
[2024-06-11 10:45] VITALS: BP 149/77; PULSE 108; BMI 28.0
== END 2024-06-11 11:28 | disposition home or self-care (01) ==
PROVIDERS: PCP Internal Medicine; Visit Provider Surgery
DX: L72.11 Pilar cyst (principal)
CPT/HCPCS: 11422; 99204

== ENCOUNTER 2024-06-18 10:09 | Outpatient (AMB) | payer MEDICARE, SELFPAY ==
--- NOTE | 2024-06-18 10:13 | A.OFFVIS_ITS ---
Intake Visit Reasons: 1 week follow up cyst scalp Intake Note: Patient here s/p pilar cyst excision on Mid frontal scalp. Patient c/o: reports site healing well. Denies oozing, pain. ~ Two sutures removed without incident. No bleeding, denies pain. Nurse Executive Required: No Accompanied by: Self / Same As Patient Allergies No Known Allergies Allergy (Verified 06/18/24 10:22) HPI Comments Details: Patient presents for follow-up. She has no wound issues or complaints. Pathology is benign. [facility] Medical History Gregor-Danlos syndrome type III Depression Neuropathy Seizure disorder Multiple sclerosis Surgical History History of Family History Father Medical history unknown Mother Colon cancer Social History Housing: Condominium Alcohol intake: current Alcohol intake frequency: does not drink Patient Tobacco Use Status: Never used Tobacco Tobacco use type: Cigarette e-Cigarette/Vaping Use: Never Used Second Hand Smoke Exposure: No service: No Current occupational status: unemployed Cognitive needs: No Hearing needs: No Vision needs: No Physical Exam HEENT Other: Scalp wound incision well healed. Sutures uneventfully removed. Assessment & Plan Assessment & Plan (1) Postop check: Code(s): Z09 - Encounter for follow-up examination after completed treatment for conditions other than malignant neoplasm Category: Surgical Plan Patient was been given local instructions, and will follow-up p.r.n. Coding Level of Care Code Global (04019) Diagnoses Postop check Z09
== END 2024-06-18 10:28 | disposition home or self-care (01) ==
PROVIDERS: PCP Internal Medicine; Visit Provider Surgery
DX: Z09 Encounter for follow-up examination after completed treatment for conditions other than malignant neoplasm (principal)
CPT/HCPCS: 99024

== ENCOUNTER → 2024-06-18 10:09 | Outpatient (BNVA) | payer MEDICARE, SELFPAY | PROVIDERS: PCP Internal Medicine; Visit Provider Surgery | DX: Z09 Encounter for follow-up examination after completed treatment for conditions other than malignant neoplasm (principal); Z87.2 Personal history of diseases of the skin and subcutaneous tissue; Z98.890 Other specified postprocedural states | CPT/HCPCS: 99212 ==

== ENCOUNTER 2024-12-14 11:49 | Outpatient (REF) | payer MEDICARE, SELFPAY ==
--- OUTSIDE RECORDS SUMMARY | 2024-12-14 11:56 | XMS_ITS ---
Author Name [facility] Organization Unknown History of Medication Use Medication Directions Dispensed Refills Start Date End Date Stat us acetaminophen (TYLENOL) tablet 975 mg 975 mg, Oral, Once, On Tue02/06/24 at 0830, For 1 doseGive 30 minutes prior to ocrelizumab. 02/06/2024 4 completed methylPREDNISolone sodium succinate (SOLU-Medrol) 1,000 mg in sodium chloride (NS) 0.9 % 100 mL IVPB 1,000 mg, Intravenous, Administer over 30 Minutes, Once, On Tue11/30/23 at 0815, For 1 dose 11/28/2023 4 completed levETIRAcetam (KEPPRA) 250 MG tablet TAKE 2 TABLETS BY MOUTH TWICE DAILY 08/12/2023 active ergocalciferol (VITAMIN D2) capsule 26906 units Take 1 capsule (50,000 Units total) by mouth once a week. 02/15/2023 active ocrelizumab (OCREVUS) 300 MG/10ML SOLN Inject 20 mL (600 mg total) into the vein. active Problems Problem Status Onset Date Problem Type Date of Resoluti on Source Seizure active 2019-12-27 ProblemAct [facility]G Multiple sclerosis active 2020-10-21 ProblemAct [facility]
--- OUTSIDE RECORDS SUMMARY | 2024-12-14 11:56 | XMS_ITS | Clinical Summary ---
Author Organization [facility] Address [address] [place] [address] Care Team Providers Care Associate Business Analyst Name Role Phone Ozzy Saenz MD Primary Care Provider [phone] Allergies No known active allergies Medications Medication Sig Dispensed Refills Start Date End Date Status ocrelizumab (OCREVUS) 300 MG/10ML SOLN Inject 20 mL (600 mg total) into the vein. 0 Active ergocalciferol (VITAMIN D2) capsule 08800 units Take 1 capsule (50,000 Units total) by mouth once a week. 12 capsule 0 02/15/2023 Active levETIRAcetam (KEPPRA) 250 MG tablet TAKE 2 TABLETS BY MOUTH TWICE DAILY 360 tablet 3 01/18/2024 Active baclofen (LIORESAL) 20 MG tablet TAKE 1 TABLET BY MOUTH 4 TIMES DAILY 360 tablet 3 03/09/2024 Active gabapentin (NEURONTIN) 600 MG tablet TAKE 2 TABLETS BY MOUTH 3 TIMES DAILY 540 tablet 3 04/12/2024 Active modafinil (PROVIGIL) 200 MG tablet TAKE ONE TABLET BY MOUTH EVERY DAY 30 tablet 5 04/22/2024 Active DULoxetine (CYMBALTA) DR capsule 30 mg TAKE 1 CAPSULE BY MOUTH 3 TIMES DAILY 270 capsule 3 04/24/2024 Active Active Problems Problem Noted Date Diagnosed Date Multiple sclerosis 10/21/2020 Seizure 12/27/2019 Family History Medical History Relation Name Comments Diabetes type I Daughter Hypertension Father Diabetes type II Mother Dementia Paternal Grandfather Relation Name Status Comments Daughter Father Mother Paternal Grandfather Social History Tobacco Use Types Packs/Day Years Used Date Smoking Tobacco: Never Smokeless Tobacco: Never Tobacco Cessation:Counseling Given: Not Answered Alcohol Use Standard Drinks/Week Comments No 0 (1 standard drink = 0.6 oz pur e alcohol) Sex and Gender Information Value Date Recorded Sex Assigned at Female 10/15/2020 8:51 AM EDT Gender Identity Not on file Sexual Orientation Not on file Job Start Date Occupation Industry Not on file Not on file Not on file Last Filed Vital Signs Vital Sign Reading Time Taken Comments Blood Pressure 156/84 02/06/2024 11:16 AM EDT Pulse 64 02/06/2024 11:16 AM EDT Temperature 36.2 ??C (97.1 ??F) 02/06/2024 11:16 AM E DT Respiratory Rate 18 02/06/2024 11:16 AM EDT Oxygen Saturation 93% 02/06/2024 11:16 AM EDT Inhaled Oxygen Concentration - - Weight 67.1 kg (148 lb) 11/25/2023 1:46 PM EDT Height 160 cm (5' 3 ) 11/25/2023 1:46 PM EDT Body Mass Index 26.22 11/25/2023 1:46 PM EDT Plan of Treatment Health Maintenance Due Date Last Done Comments Hepatitis C Screening 1965 COVID-19 Vaccine (#1) 1964 Depression Screening 1976 BMI Counseling 1982 Preventative Health Evaluation 1982 DTap / Tdap / Td (1 - Tdap) 1983 Cervical Cancer Screening (P ap Smear) 1985 Colon Cancer Screening (Colonoscopy) 2009 Breast Cancer Screening (Mammogram) 2014 Shingrix-Zoster Vaccine (1 of 2) 2014 Influenza Vaccine (#1) 2024 RSV Adult > 60+ Yrs or Pregn ant (1 - 1-dose 75+ series) 2039 Hepatitis B Vaccines Aged Out No long er eligible based on patient's age to complete this topic Pneumococcal Vaccine Aged Out No long er eligible based on patient's age to complete this topic RSV Ped < 20 months Aged Out No longe r eligible based on patient's age to complete this topic Care Teams Associate Business Analyst Relationship Specialty Start Date End Date Ozzy Saenz MD [address] [place] [address] [place] [address] PCP - General Internal Medicine 08/13/20
--- OUTSIDE RECORDS SUMMARY | 2024-12-14 11:56 | XMS_ITS | Clinical Summary ---
Author Organization [facility] Address [address] [place] [address] Phone Care Team Providers Care Coordinator Of Health Services Name Role Phone Unavailable Primary Care Provider Unavailabl e Allergies No known active allergies Medications baclofen (LIORESAL) 20 mg tablet Take 1 tablet (20 mg total) by mouth. 09/18/2021 Active gabapentin (NEURONTIN) 600 mg tablet Take 2 tablets (1,200 mg total) by mouth 3 (three) times a day. 09/18/2021 Active levETIRAcetam (KEPPRA) 250 mg tablet Take 2 tablets (500 mg total) by mouth 2 (two) times a day. 03/10/2022 Active ocrelizumab (OCREVUS) 30 mg/mL solution injection Infuse 20 mL (600 mg total) into a venous catheter. Active ergocalciferol (VITAMIN D-2) 1,250 mcg (50,000 unit) capsule Take 1 capsule (50,000 Units total) by mouth. 02/15/2023 Active escitalopram (Lexapro) 10 mg tablet Take 1 tablet (10 mg total) by mouth 1 (one) time each day. 90 each 3 08/31/2024 6 Active modafiniL (PROVIGIL) 200 mg tablet Take 1 tablet (200 mg total) by mouth 1 (one) time each day. Max Daily Amount: 200 mg 90 each 10/26/2024 5 Active Active Problems Problem Noted Date Diagnosed Date Multiple sclerosis ([facility] V24, [facility] V28) Seizure ([facility] V24, [facility] V28) 12/27/2019 Encounters Date Type Department Care Team Description 10/17/2024 9:30 AM EDT Office Visit [facility] [address] [facility] [facility] [place] [address] Wanda Jackson PA Multiple sclerosis ([facility] V24, [facility] V28) (Primary Dx) from Last 3 Months Surgical History Surgery Date Site/Laterality Comments NO PAST SURGERIES PROCEDURE:NO PAST SURGERIES Medical History Medical History Date Comments Depression DX:Depression Acid reflux DX:Acid reflux Irritable bowel syndrome DX:Irri table bowel syndrome Multiple sclerosis ([facility] V24, [facility] V28) DX:Multiple sclerosis (HCC) Multiple sclerosis ([facility] V24, [facility] V28) DX:Multiple sclerosis (HCC) Family History Medical History Relation Name Comments Diabetes type I Daughter Hypertension Father Other: heart disease Father Colon cancer Mother Diabetes Mother Diabetes type II Mother Other: urinary incontinence Mother Dementia Paternal Grandfather Relation Name Status Comments Daughter Father Mother Paternal Grandfather Social History Tobacco Use Types Packs/Day Years Used Date Smoking Tobacco: Never Smokeless Tobacco: Never Alcohol Use Standard Drinks/Week Comments Yes 0 (1 standard drink = 0.6 oz pur e alcohol) Comments Unknown Sex and Gender Information Value Date Recorded Sex Assigned at Female 07/12/2024 11:10 AM EST Legal Sex Female 2:28 AM EST Gender Identity Female 07/12/2024 11:10 AM EST Sexual Orientation Choose not to disclose 2023 11:10 AM EST Obstetrics History Last Filed Vital Signs Vital Sign Reading Time Taken Comments Blood Pressure 155/81 10/17/2024 9:42 AM EDT Pulse 69 10/17/2024 9:42 AM EDT Temperature 36.4 ??C (97.5 ??F) 10/17/2024 9:42 AM ED T Respiratory Rate 16 08/06/2024 12:38 PM EST Oxygen Saturation 98% 10/17/2024 9:42 AM EDT Inhaled Oxygen Concentration - - Weight 59.4 kg (131 lb) 05/08/2024 10:56 AM EDT Height 160 cm (5' 3 ) 11/25/2023 1:46 PM EDT Body Mass Index 23.21 11/25/2023 1:46 PM EDT Plan of Treatment Upcoming Encounters Date Type Department Care Team (Late st Contact Info) Description 02/04/2025 8:00 AM EDT Appointment [facility] [place] [address] [place] [phone] 02/19/2025 8:30 AM EDT Office Visit [facility] [place] [address] [facility] [address] [place] [phone] Mellissa Holt MD [address] [facility] [address] [place] [phone] Health Maintenance Due Date Last Done Comments Breast Cancer Screening 1965 DTaP,Tdap,and Td Vaccines (1 - Tdap) 1983 Cervical Cancer Screening: P ap Smear 1985 Pneumococcal Vaccine: 50+ Ye ars (1 of 1 - PCV) 2014 Zoster Vaccines (1 of 2) 2014 Colorectal Cancer Screening: Colonoscopy 07/09/2022 Depression Screening 07/09/2022 HIV Screening 07/09/2022 Hepatitis C Screening 07/09/2022 Medicare Annual Wellness Visit 07/09/2022 Social Influencers of Health Screening 07/09/2022 COVID-19 Vaccine ( - 2023-2 5 season) 2024 Influenza Vaccine (Season Ended) 2025 RSV Immunization Adult Patie nts (1 - 1-dose 75+ series) 2039 HIB Vaccines Aged Out No longer eligi ble based on patient's age to complete this topic HPV Vaccines Aged Out No longer eligi ble based on patient's age to complete this topic Hepatitis A Vaccines Aged Out No long er eligible based on patient's age to complete this topic Hepatitis B Vaccines Aged Out No long er eligible based on patient's age to complete this topic IPV Vaccines Aged Out No longer eligi ble based on patient's age to complete this topic MMR Vaccines Aged Out No longer eligi ble based on patient's age to complete this topic Meningococcal ACWY Vaccine Aged Out N o longer eligible based on patient's age to complete this topic Meningococcal B Vaccine Aged Out No l onger eligible based on patient's age to complete this topic Pneumococcal Vaccine: Pediat rics (0 to 5 Years) and At-Risk Patients (6 to 64 Years) Aged Out No longer eligible b ased on patient's age to complete this topic RSV Immunization Patients Un hector 20 months Aged Out No longer eligible b ased on patient's age to complete this topic Varicella Vaccines Aged Out No longer eligible based on patient's age to complete this topic Insurance [employer] [id number] [employer]
[2024-12-14 13:11] LABS: Appearance Urine Clear; Color Urine Yellow; Glucose Urine UA Negative (Negative); Leukocyte Esterase Urine Negative (Negative); Nitrite Urine Negative (Negative); PH >= 9.0 (5.0-9.0); Urine Blood Negative (Negative); Urine Ketones Negative (Negative); Urine Protein Negative (Neg-Trace)
== END 2024-12-14 11:50 | disposition home or self-care (01) ==
LOC: HO.HMGCLDS 11:49
PROVIDERS: PCP Physician Assistant; Visit Provider Physician Assistant
DX: N39.0 Urinary tract infection, site not specified (principal)
CPT/HCPCS: 81003

== ENCOUNTER 2025-01-11 10:56 | Outpatient (REF) | payer MEDICARE, SELFPAY ==
[2025-01-11 13:24] LABS: Appearance Urine Cloudy; Color Urine Yellow; Glucose Urine UA Negative (Negative); Leukocyte Esterase Urine Negative (Negative); Nitrite Urine Negative (Negative); Specific Gravity - Urine >= 1.030 (1.005-1.025); Urine Blood Negative (Negative); Urine Ketones Trace mg/dL (Negative); Urine Protein Trace mg/dL (Neg-Trace)
== END 2025-01-11 10:57 | disposition home or self-care (01) ==
LOC: HO.HMGCLNP 10:56
PROVIDERS: PCP Physician Assistant; Visit Provider Physician Assistant
DX: R39.9 Unspecified symptoms and signs involving the genitourinary system (principal)
CPT/HCPCS: 81003

== ENCOUNTER 2025-05-29 08:53 | Outpatient (AMB) | payer MEDICARE, SELFPAY ==
--- OUTSIDE RECORDS SUMMARY | 2025-05-28 08:30 | XMS_ITS | Encounter Summary ---
Author Organization [facility] Address [address] [place] [address] Care Team Providers Care Plastic Technician Name Role Phone Kaiden Walters Primary Care Provider [phone] Reason for Visit * Consultation (Routine) - Authorized Specialty Diagnoses / Procedures Referred By Kailyn dumont Referred To Contact Physical Therapy Diagnoses Multiple sclerosis Gait abnormality Mellissa Holt MD Phone: tel: fax: Referral ID Status Reason Start Date Expiration Date Visits Requested Visits Authorized [id number] Authorized Specialty Services Required 02/19/2025 02/19/2026 20 20 Encounter Details Date Type Department Care Team (Late st Contact Info) Description 05/28/2025 8:30 AM EDT Treatment [address] [phone] Anthony Vieira, CAMPAIGN ASSISTANT Multiple sclerosis (Primary Dx) Social History Tobacco Use Types Packs/Day Years [...] not to disclose 2023 11:10 AM EST documented as of this encounter Progress Notes * Anthony Vieira PTA - 05/28/2025 8:30 AM EDT [facility] - Outpatient PHYSICAL THERAPY DAILY TREATMENT NOTE - OP Date: 05/28/2025 Visit Number: [id number] Patient Name: Peace Stevens : 1965 Age: 60 y.o. Gender: female Diagnosis: No diagnosis found. Date of Onset/Surgery: 04/08/2025 Referring Provider: Mellissa Holt, * Insurance: Payor: [employer] / Plan: [facility] MEDICARE ADVANTAGE / Product Type: *No Product type* / Patient Identified by: Anthony Vieira PTA Language: Kyrgyz Medications: Current Outpatient Medications on File Prior to Visit Medication Sig Dispense Refill baclofen (LIORESAL) 20 mg tablet Take 1 tablet (20 mg total) by mouth 4 (four) times a day. 120 each 3 ergocalciferol (VITAMIN D-2) 1,250 mcg (50,000 unit) capsule Take 1 capsule (50,000 Units total) bymouth. escitalopram (LEXAPRO) 20 mg tablet TAKE 1 TABLET BY MOUTH ONCE DAILY 30 tablet 11 gabapentin (NEURONTIN) 600 mg tablet Take 2 tablets (1,200 mg total) by mouth 3 (three) times a day. 540 tablet 1 levETIRAcetam (KEPPRA) 250 mg tablet TAKE 2 TABLETS BY MOUTH TWICE DAILY 240 tablet 5 modafiniL (PROVIGIL) 200 mg tablet Take 1 tablet (200 mg total) by mouth 1 (one) time each day. MaxDaily Amount: 200 mg 90 each 0 ocrelizumab (OCREVUS) 30 mg/mL solution injection Infuse 20 mL (600 mg total) into a venous catheter. No current facility-administered medications on file prior to visit. Allergies: has no known allergies. Precautions: none Fall risk: Yes and Assist Patient to and from waiting room SUBJECTIVE Subjective Report: Pt reported that she should be getting some form of W/C awaiting insurance approval, pt reports she fell this morning aftr getting out of the shower.pt stated she fell on her kneesno pain she said Chart Reviewed: Yes Pain No pain OBJECTIVE Nu step, load 3, BLE/BUE, x 7 minutes Forward step ups onto 4 in step x 15 (B) with UE support Standing heel raises x 15 Standing hip ext and abd x 20 each (B) Sit to stand from chair with 1 airex pad x 16 total 8 with (R) UE support and 8 with (L) UE Lateral stepping with no UE support but SBG 1 lap HEP: Seated heel/toe raises , seated LAQ w and W/o tband, seated knee flexion with tband, seated hip add, seated hip abd with tband, seated marching with and w/o tband, bridging TREATMENT INTERVENTION: ASSESSMENT/Response to Treatment Good some fatgiue with there ex. Pt able to tolerate increased reps Patient Education: Education provided: Yes, pt provided with orange TB for HEP use Education Provided To: Patient utilizing Explanation mode(s) of education Response to Education: Verbal Understanding PLAN POC Development/Review: No Change in the Plan of Care; Participants: Patient Total Treatment Time: 30 Modalities: Therapeutic procedures: Documentation completed by Anthony Vieira PTA documented in this encounter Plan of Treatment Upcoming Encounters Date Type Department Care Team (Late st Contact Info) Description 05/30/2025 8:[address] [facility] [address] [phone] Anthony Vieira PTA 06/04/2025 8:[address] [facility] [address] [phone] Brenda Epstein, PT 06/06/2025 8:[address] [facility] [address] [phone] Anthony Vieira PTA 08/05/2025 8:00 AM EST Appointment [facility] [address] [phone] 08/05/2025 8:00 AM EST Office Visit [address] [place] [phone] Mellissa Holt MD [address] [place] [address] documented as of this encounter Goals Goal Patient Goal Type Associated Problems Recent Progress Patient-Stated? Author 4 OT visits General No Holly Ward, OT Note: Indep HEP (sign builder supervisor strength, shldr strength, AE) L sign builder supervisor increased to at least 30# Pt will trial /demo awareness of AE for write/feed/etc, to maximize fcnl use LUE documented as of this encounter Visit Diagnoses Diagnosis Multiple sclerosis- Primary documented in this encounter Care Teams Plastic Technician Relationship Specialty Start Date End Date Kaiden Walters PA [address] [place] [phone] PCP - General Physician Sheet Roller Operator 01/22/25 documented as of this encounter
[2025-05-29 09:01] VITALS: BP 124/88; PULSE 82; TEMP 36.3; O2SAT 96; BMI 31.4
--- NOTE | 2025-05-29 09:01 | MHC.PC.OV ---
Vital Signs 05/29/25 09:01 Height 5 ft 1 in Weight 166 lb 0.129 oz BMI 31.4 BP 124/88 Blood Pressure Location Lt brachial Position Sitting Pulse 82 Pulse Source Pulse Oximeter Temp 97.3 F Temp Source Temporal Artery Scan Pulse Oximetry (%) 96 Oxygen Delivery Method Room Air Intake Visit Reasons: DECLAN from Dany/PEGGY Allergies No Known Allergies Allergy (Verified 05/29/25 09:10) Medication List - Last Reconciled 05/29/25 by Kaiden Walters PA-C baclofen 20 mg PO TID duloxetine 30 mg PO DAILY gabapentin 600 mg PO DAILY levetiracetam 250 mg PO DAILY modafinil 200 mg PO DAILY ocrelizumab (Ocrevus) 600 mg IV [id number] Tobacco use date assessed: 05/29/25 Dental Screening Dental Screen Date: 05/29/25 Did you have a dental visit in the last 12 months?: No Did you have a dental problem in the last 6 months where you did not have access to dental care?: No Was dental information given to patient?: No HPI DECLAN from Dany/PEGGY HPI Details Patient is a 60-year-old female here today for an annual physical. Also a transfer of care previous PCP was Dr. Saenz. Patient has a past medical history significant for multiple sclerosis. .. 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 All her medications are for her MS and are managed by her neurologist at the [facility] in [place]. .. Hyperlipidemia: Review of lab work from a year ago reveals a total cholesterol of 293 mg/dL and an LDL cholesterol over 200 mg/dL, with a borderline high glucose level. The patient's mother had type 2 diabetes requiring insulin and from its complications; she also had colon cancer. Her father had high cholesterol. --> The patient's diet is not optimal, consisting of microwavable, high-sodium foods, as she has limited use of her left hand and cannot cook. She reports adding some salads, fruits, and veggies to her diet. She uses a walker for mobility. .. Mammogram: Willing to get mammogram. .. Colorectal cancer screening: Has followed by gastroenterology and has been up-to-date with the colonoscopies .. Vaccines: Up-to-date with flu, COVID, pneumonia home RSV and tetanus vaccines [facility] Medical History Gregor-Danlos syndrome type III Depression Neuropathy Seizure disorder Multiple sclerosis Surgical History History of Family History Father Medical history unknown Mother Colon cancer Social [facility] Alcohol intake: current Alcohol intake frequency: does not drink Patient Tobacco Use Status: Never used Tobacco Tobacco use type: Cigarette e-Cigarette/Vaping Use: Never Used Second Hand Smoke Exposure: No service: No Current occupational status: unemployed Cognitive needs: No Hearing needs: No Vision needs: No Questionnaire PHQ-9 Over the last 2 weeks, how often have you been bothered by any of the following problems? 1. Little interest or pleasure in doing things: several days 2. Feeling down, depressed, or hopeless: several days 3. Trouble falling or staying asleep, or sleeping too much: not at all 4. Feeling tired or having little energy: several days 5. Poor appetite or overeating: not at all 6. Feeling bad about yourself - or that you are a failure or have let yourself or your family down: not at all 7. Trouble concentrating on things, such as reading the newspaper or watching television: not at all 8. Moving or speaking so slowly that other people could have noticed. Or the opposite - being so fidgety or restless that you have been moving around a lot more than usual: not at all 9. Thoughts that you would be better off or of hurting yourself in some way: not at all Total score: 3 Depression Screening Interpretation: Positive Depression Screening Follow-up: Existing condition Depression Screening Done: Yes 86480 - PHQ-9 Billing: Yes Source: Developed by Drs. Charles Pittman, Edel Roldan, Humphrey Cruz and colleagues, with an educational rachel from [employer]. Thrive Questionnaire Date Thrive assessed: 05/27/25 I am a: Patient What is your living situation today?: I have a steady place to live Within the past 12 months, did the food you bought not last and you didn't have the money to get more?: Never true Within the past 12 months, did you worry whether your food would run out before you got money to buy more?: Never true Do you have trouble paying for medicines?: No Do you have trouble getting transportation to medical appointments?: No Do you have trouble paying your heating and electricity bill?: No Do you have trouble taking care of your child, family member or friend?: No Do you have trouble with day-to-day activities such as bathing, preparing meals, shopping, managing finances, etc.?: Yes Are you currently unemployed and looking for a job?: No Are you interested in more education?: No Please select the resources that you would like help with: None Currently or been in a relationship where the following occur: No concerns reported THRIVE Score: 0 AUDIT C Alcohol Use Questionnaire (AUDIT-C) 1. How often do you have a drink containing alcohol?: Never 3. How often do you have six or more drinks on one occasion?: Never Total Score: 0 DIANELYS-7 AMB Questionnaire DIANELYS-7 Date DIANELYS - 7 assessed: 05/29/25 Feeling nervous, anxious, or on edge: 0 = Not at all Not being able to stop or control worryin = Not at all Worrying too much about different things: 0 = Not at all Trouble relaxin = Not at all Being so restless that it is hard to sit still: 0 = Not at all Becoming easily annoyed or irritable: 0 = Not at all Feeling afraid as if something awful might happen: 0 = Not at all Total DIANELYS-7 score (0-4 normal; 5-9 mild; 10-14 moderate; 15-21 severe): 0 Source: Developed by Drs. Charles Pittman, Edel Roldan, Humphrey Cruz and colleagues, with an educational rachel from [employer]. DIANELYS-7 Assessment Billing DIANELYS-7 Assessment Tool: DIANELYS-7 Assessment 34429 Physical exam (Primary Care) Vital Signs: Last Vital Signs Temp 97.3 F 05/29/25 09:01 Pulse 82 05/29/25 09:01 BP 124/88 05/29/25 09:01 Pulse Ox 96 05/29/25 09:01 Oxygen Delivery Method Room Air 05/29/25 09:01 BMI result Body Mass Index 31.4 Tobacco/Smoking Status: Tobacco use Status Tobacco use date assessed 05/29/25 05/29/25 09:04 Patient Tobacco Use Status Never used Tobacco 05/29/25 09:04 Tobacco use type Cigarette 05/29/25 09:04 e-Cigarette/Vaping Use Never Used 05/29/25 09:04 PHQ-9: PHQ-9 Score PHQ-9: Total score 3 05/29/25 09:04 Depression Screening Interpretation: Positive Depression Screening Follow-up: Existing condition Thrive Assessment: Date of Thrive Assessment Date Thrive assessed 05/27/25 05/29/25 09:04 Currently or been in a relationship where the following occur: No concerns reported Coding Level of Care Code Est Pt Prev Care 40-64y(68986) Diagnoses Annual physical exam Z00.00 Mixed hyperlipidemia E78.2 Hyperlipidemia type: mixed hyperlipidemia Multiple sclerosis G35 Impaired fasting glucose R73.01 History of MMR vaccination Z92.29 EDS (Gregor-Danlos syndrome) Q79.60 Class 1 obesity E66.9 Additional Codes DIANELYS-7 Assessment Billing - DIANELYS-7 Assessment Tool: DIANELYS-7 Assessment [id number] ([id number]) PHQ-9 - 39270 - PHQ-9 Billing: Yes ([id number]) Assessment & Plan Assessment & Plan (1) Annual physical exam: Code(s): Z00.00 - Encounter for general adult medical examination without abnormal findings Category: Medical Plan: As per HPI (2) HLD (hyperlipidemia): Code(s): E78.5 - Hyperlipidemia, unspecified Category: Medical Qualifiers: Hyperlipidemia type: mixed hyperlipidemia Qualified Code(s): E78.2 - Mixed hyperlipidemia Plan: Patient has significantly elevated total cholesterol and LDL noted on labs in the fall of 2023. She is willing to start cholesterol medication to reduce his cardiovascular risk. Will start atorvastatin 20 mg and continue to monitor lipid panel goal LDL to be below 160 (3) Multiple sclerosis: Code(s): G35 - Multiple sclerosis Category: Medical Plan: She was diagnosed with MS in 1984. Ambulates with assistance from a Rollator walker. Patient followed by neurologist at an [facility]. She continues on medication that has health slow progression her MS disease. (4) Impaired fasting glucose: Code(s): R73.01 - Impaired fasting glucose Category: Medical Plan: Patient's most recent fasting blood sugars borderline high at 108. Will check an A1c and fasting blood sugar. Patient does admit to poor eating habits has most of her meals are microwavable (5) History of MMR vaccination: Code(s): Z92.29 - Personal history of other drug therapy Category: Medical Plan: Patient interested in getting measles titers. (6) EDS (Gregor-Danlos syndrome): Code(s): Q79.60 - Gregor-Danlos syndrome, unspecified Category: Medical Plan: Patient has EDS seeing is followed by her MS clinic to which she takes duloxetine gabapentin and baclofen (7) Class 1 obesity: Code(s): E66.9 - Obesity, unspecified Category: Medical Plan: Patient does understand her BMI is over 30 and will try to work on being more physically active and adapting to better eating habits to reduce her weight Orders: Orders Lipid Panel Today E78.5 - Hyperlipidemia, unspecified Comprehensive [place]. Panel Fast Today E78.5 - Hyperlipidemia, unspecified MM screening mammo BI Today Z12.31 - Encounter for screening mammogram for malignant neoplasm of breast Hemoglobin A1c Today R73.01 - Impaired fasting glucose Complete Blood Count no Diff Today E78.5 - Hyperlipidemia, unspecified MMR IgG Measles Mumps Rubella Today Z92.29 - Personal history of other drug therapy Medications: New atorvastatin (Lipitor) 20 mg PO DAILY 90 tabs 2RF 90 days E78.5 - Hyperlipidemia, unspecified
--- OUTSIDE RECORDS SUMMARY | 2025-05-29 09:50 | XMS_ITS | Clinical Summary ---
Author Organization [address] [facility] Address [address] [place] [address] Phone Care Team Providers Care Route Sales Delivery Drivers Supervisor Name Role Phone Kaiden Walters Primary Care Provider Allergies No known active allergies Medications ocrelizumab (OCREVUS) 30 mg/mL solution injection Infuse 20 mL (600 mg total) into a venous catheter. Active ergocalciferol (VITAMIN D-2) 1,250 mcg (50,000 unit) capsule Take 1 capsule (50,000 Units total) by mouth. 3 Active escitalopram (LEXAPRO) 20 mg tablet TAKE 1 TABLET BY MOUTH ONCE DAILY 30 tablet 11 5 Active gabapentin (NEURONTIN) 600 mg tablet Take 2 tablets (1,200 mg total) by mouth 3 (three) times a day. 540 tablet 1 5 Active baclofen (LIORESAL) 20 mg tablet Take 1 tablet (20 mg total) by mouth 4 (four) times a day. 120 each 3 5 07/26/20 25 Active levETIRAcetam (KEPPRA) 250 mg tablet TAKE 2 TABLETS BY MOUTH TWICE DAILY 240 tablet 5 5 Active modafiniL (PROVIGIL) 200 mg tabletIndicatio ns:Multiple sclerosis Take 1 tablet (200 mg total) by mouth 1 (one) time each day. Max Daily Amount: 200 mg 90 each 5 07/31/20 25 Active modafiniL (PROVIGIL) 200 mg tabletIndicatio ns:Multiple sclerosis Take 1 tablet (200 mg total) by mouth 1 (one) time each day. Max Daily Amount: 200 mg 90 each 5 05/01/20 25 Discontinu ed(Reorder ) Active Problems Problem Noted Date Diagnosed Date Multiple sclerosis 10/21/2020 Seizure ([facility] V24, [facility] V28) 12/27/2019 Encounters Date Type Department Care Team Description 05/28/2025 8:30 AM EDT Treatment [facility] [address] [address] Anthony Vieira, DRY JANITOR Multiple sclerosis (Primary Dx) 05/23/2025 8:30 AM EDT Treatment [facility] [address] [address] Anthony Vieira, DRY JANITOR Multiple sclerosis (Primary Dx) 05/09/2025 12:30 PM EDT Treatment [address] [address] Dejuan Flores, PT Multiple sclerosis (Primary Dx) 05/07/2025 8:00 AM EDT Treatment [address] [address] Brenda Epstein, PT Multiple sclerosis (Primary Dx); Gait abnormality 04/29/2025 Telephone [facility] [address] [address] Holly Ward OT 04/23/2025 10:00 AM EDT Treatment [facility] [address] [address] Anthony Vieira, DRY JANITOR Multiple sclerosis ([facility] V24, [facility] V28) (Primary Dx); Gait abnormality 04/08/2025 11:00 AM EDT Evaluation [address] [address] Brenda Epstein, PT Multiple sclerosis (CMS/HCC V24, CMS/HCC V28); Gait abnormality 03/18/2025 11:00 AM EDT Evaluation [facility] [address] [address] Holly Ward, OT Multiple sclerosis (CMS/HCC V24, CMS/HCC V28); Gait abnormality from Last 3 Months Surgical History Surgery Date Site/Laterality Comments NO PAST SURGERIES PROCEDURE:NO PAST SURGERIES Medical History Medical History Date Comments Depression DX:Depression Acid reflux DX:Acid reflux Irritable bowel syndrome DX:Irri table bowel syndrome Multiple sclerosis 05/03/2016 DX:Multiple s clerosis (HCC) Multiple sclerosis DX:Multiple s clerosis (HCC) Family History Medical History Relation Name [...] Sign Reading Time Taken Comments Blood Pressure 137/88 02/19/2025 8:38 AM EDT Pulse 78 02/19/2025 8:38 AM EDT Temperature 36.1 C (96.9 F) 02/04/2025 10:52 AM EDT Respiratory Rate 18 02/04/2025 10:52 AM EDT Oxygen Saturation 96% 02/19/2025 8:38 AM EDT Inhaled Oxygen Concentration - - Weight 59.4 kg (131 lb) 02/19/2025 8:38 AM EDT Height 160 cm (5' 3 ) 11/25/2023 1:46 PM EDT Body Mass Index 23.21 11/25/2023 1:46 PM EDT Plan of Treatment Upcoming Encounters Date Type Department Care Team (Late st Contact Info) Description 05/30/2025 8:30 AM EDT Treatment [address] [address] Anthony Vieira, DRY JANITOR 06/04/2025 8:30 AM EST Treatment [facility] [address] [address] Brenda Epstein, PT 06/06/2025 8:30 AM EST Treatment [address] [address] Anthony Vieira, DRY JANITOR 08/05/2025 8:00 AM EST Appointment [facility] [address] [address] 08/05/2025 8:00 AM EST Office Visit [facility] - [address] [address] Mellissa Holt MD [address] [place] [address] Health Maintenance Due Date Last Done Comments Breast Cancer Screening 1965 Colorectal Cancer Screening: Colonoscopy 1965 Cervical Cancer Screening: Pap Smear 1985 HIV Screening 07/09/2022 Hepatitis C Screening 07/09/2022 Medicare Annual Wellness Visit 07/09/2022 Social Influencers of Health Screening 07/09/2022 Depression Screening 08/01/2024 DTaP,Tdap,and Td Vaccines (2 - Td or Tdap) 01/11/2028 01/10/2018 Pneumococcal Vaccine: 50+ Years Completed 06/01/2024 Zoster Vaccines Completed 10/30/2024, 06/01/2024 COVID-19 Vaccine Completed 05/03/2025, , 05/05/2023, Additional history exists Influenza Vaccine Completed 05/03/2025, , 05/05/2023, Additional history exists RSV Immunization Adult Patients Completed 05/03/2025 HIB Vaccines Aged Out No longer eligi [...] to complete this topic RSV Immunization Patients Under 20 months Aged Out No longer eligible based on patient's age to complete this topic Varicella Vaccines Aged Out No longer eligible based on patient's age to complete this topic Goals Goal Patient Goal Type Associated Problems Recent Progress Patient-Stated? Author 4 OT visits General No Holly Ward, OT Note: Indep HEP (utility bill complaints investigator strength, shldr strength, AE) L utility bill complaints investigator increased to at least 30# Pt will trial /demo awareness of AE for write/feed/etc, to maximize fcnl use LUE Insurance [facility] [email or web address] [address] [address] [employer] [facility] [address] [place] [address] Care Teams Route Sales Delivery Drivers Supervisor Relationship Specialty Start Date End Date Kaiden Walters PA [address] [place] [address] PCP - General Physician Racecourse Barrier Attendant 01/22/25
--- OUTSIDE RECORDS SUMMARY | 2025-05-29 09:50 | XMS_ITS ---
Author Name [facility] History of Medication Use Medication Directions Dispensed Refills Start Date End Date Status acetaminophen (TYLENOL) tablet 975 mg 975 mg, Oral, Once, On Tue02/06/24 at 0830, For 1 doseGive 30 minutes prior to ocrelizumab. 4 completed diphenhydrAMINE (BENADRYL) injection 50 mg 50 mg, Intravenous, Once, On Tue02/06/24 at 0830, For 1 doseGive 30 minutes prior to ocrelizumab. IV push over 2-3 minutes. See PO diphenhydramine order. Please give PO or IV. Common Side Effects: Drowsiness, stomach upset, confusion, dry mouth. Administer undiluted. Maximum rate 25 mg/min. 4 completed methylPREDNISolone sodium succinate (SOLU-Medrol) injection 125 mg 125 mg, Intravenous, Once, On Tue02/06/24 at 0830, For 1 doseGive 30 minutes prior to ocrelizumab. Administer over 2-3 minutes 4 completed ocrelizumab (OCREVUS) 600 mg in sodium chloride (NS) 0.9 % 500 mL IVPB 600 mg, Intravenous, Once, On Tue02/06/24 at 0830, For 1 doseMust use in-line 0.22 micron filter. - Infusion Rate for first full 600 mg dose or reaction with previous infusion: Start at 40 mL/hr. Increase by 40 mL/hr every 30 minutes. Maximum rate: 200 mL/hr. Duration: 3.5 hours or longer. - Infusi 4 completed methylPREDNISolone sodium succinate (SOLU-Medrol) 1,000 mg in sodium chloride (NS) 0.9 % 100 mL IVPB 1,000 mg, Intravenous, Administer over 30 Minutes, Once, On Tue11/30/23 at 0815, For 1 dose 4 completed modafinil (PROVIGIL) 200 MG tablet Take 1 tablet (200 mg total) by mouth daily. 4 024 active levETIRAcetam (KEPPRA) 250 MG tablet TAKE 2 TABLETS BY MOUTH TWICE DAILY 4 active DULoxetine (CYMBALTA) DR capsule 30 mg TAKE 1 CAPSULE BY MOUTH 3 TIMES DAILY 3 active gabapentin (NEURONTIN) 600 MG tablet TAKE 2 TABLETS BY MOUTH 3 TIMES DAILY 3 active ciprofloxacin (Cipro) 500 MG tablet Take 1 tablet (500 mg total) by mouth 2 (two) times a day. 3 024 aborted ergocalciferol (VITAMIN D2) capsule 39249 units Take 1 capsule (50,000 Units total) by mouth once a week. 3 active baclofen (LIORESAL) 20 MG tablet TAKE 1 TABLET BY MOUTH 4 TIMES DAILY 3 024 active ocrelizumab (OCREVUS) 300 MG/10ML SOLN Inject 20 mL (600 mg total) into the vein. active Problems Problem Status Onset Date Problem Type Date of Resoluti on Source Multiple sclerosis active 2020-10-21 ProblemAct CTTHNEMG Seizure active 2019-12-27 ProblemAct CTTHNEMG
--- OUTSIDE RECORDS SUMMARY | 2025-05-29 09:50 | XMS_ITS | Clinical Summary ---
Author Organization [facility] Address [address] [place] [address] Care Team Providers Care Teacher Learning Disabled Name Role Phone Ozzy Saenz MD Primary Care Provider [phone] Allergies No known active allergies Medications Medication Sig Dispensed Refills Start Date End Date Status ocrelizumab (OCREVUS) 300 MG/10ML SOLN Inject 20 mL (600 mg total) into the vein. 0 Active ergocalciferol (VITAMIN D2) capsule 77972 units Take 1 capsule (50,000 Units total) [...] 64 02/06/2024 11:16 AM EDT Temperature 36.2 C (97.1 F) 02/06/2024 11:16 AM EDT Respiratory Rate 18 02/06/2024 11:16 AM EDT [...] (1 of 2) 2014 Influenza Vaccine (#1) 2025 RSV Adult > 60+ Yrs or Pregn [...] age to complete this topic Care Teams Teacher Learning Disabled Relationship Specialty Start Date End Date Ozzy Saenz MD [address] [place] [address] [place] [address] PCP - General Internal Medicine 08/13/20
== END 2025-05-29 09:27 | disposition home or self-care (01) ==
LOC: HO.HMCH 08:54
PROVIDERS: PCP Physician Assistant; Visit Provider Physician Assistant
DX: Z00.00 Encounter for general adult medical examination without abnormal findings (principal); E78.2 Mixed hyperlipidemia; E66.9 Obesity, unspecified; Z68.31 Body mass index [BMI] 31.0-31.9, adult; G35.D Multiple sclerosis, unspecified; R73.01 Impaired fasting glucose; Z92.29 Personal history of other drug therapy; Q79.60 Ehlers-Danlos syndrome, unspecified

== ENCOUNTER → 2025-05-29 08:53 | Outpatient (BNVA) | payer MEDICARE, SELFPAY | PROVIDERS: PCP Physician Assistant; Visit Provider Physician Assistant | DX: Z00.00 Encounter for general adult medical examination without abnormal findings (principal); G35.D Multiple sclerosis, unspecified; E78.2 Mixed hyperlipidemia; R73.01 Impaired fasting glucose; Z92.29 Personal history of other drug therapy; Q79.60 Ehlers-Danlos syndrome, unspecified; E66.9 Obesity, unspecified; Z68.31 Body mass index [BMI] 31.0-31.9, adult | CPT/HCPCS: 96127; 99396 ==